=== PATIENT | male | born 1990 | race Caucasian/White ===

== ENCOUNTER 2020-11-11 12:44 | Emergency (ER) | payer OTHER, SELFPAY ==
[2020-11-11 12:45] VITALS: BP 149/89; PULSE 77; RESP 16; TEMP 36.4; O2SAT 98; BMI 37.0
--- NOTE | 2020-11-11 12:55 | VDLE_ITS ---
Reason For Study: pain Procedure LEFT This is a venous duplex using B-mode, color GSV is normal. flow and spectral Doppler. CFV is compressible, spontaneous, phasic, Exam performed portable in ED. competent, and demonstrates normal The exam was abbreviated due to the COVID 19 augmentation. protocol. FV is compressible, spontaneous, phasic, The exam was diagnostic. competent and demonstrates normal A preliminary report was called and/or faxed augmentation. to Dr. Gonzalez. POP V is compressible, spontaneous, phasic, competent and demonstrates normal augmentation. T/P Trunk is compressible. PTV is compressible. LT PerV is compressible. Interpretation Summary There is no evidence of left lower extremity deep vein thrombosis. Left great saphenous vein appears patent and compressible segmentally. COVID-19 protocol Ordering Physician: Darline Gonzalez Performed By: Chase Milan RVT
--- NOTE | 2020-11-11 12:55 | ED.DCSUM_ITS ---
- ER Visit Summary Date of Service: 11/11/20 Chief Complaint: [Left leg pain] History of Present Illness: The patient is a 30 M [presents to the emergency department complaint of pain in his left leg that started yesterday. Patient states that he had been golfing and while standing on the ninth he developed sudden onset of a deep ache in his anterior left dee that then radiated to the calf and up to his upper leg. Patient states that progressively the pain got better and better and resolved over time. Patient states that he was advised by his boss to come in and get a venous Doppler to rule out DVT because he did have Covid in May 2020. Patient denies any chest pain or shortness of breath. He denies recent travel or surgery. He denies long periods of immobilization. Patient currently not having any pain.] Physical Examination: [HEENT-PERRLA, EOMI. Cranial nerves II through XII grossly intact. TMs clear. Mucous membranes moist. No adenopathy. Cardiovascular-regular rate and rhythm without murmur or ectopy Lungs-clear to auscultation, chest wall stable without crepitus or subcu emphysema Abdomen-normoactive bowel sounds, soft, nontender, no rebound or rigidity, no peritoneal signs. Extremities-intact ?4, normal range of motion, normal pulses, atraumatic. No evidence of edema. Patient has normal femoral, popliteal, dorsal pedal, and posterior tibial pulses. No ropes or cords palpated. 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 It may contain incorrect words, spelling, and punctuation that were not noted in review of the chart prior to signing ED Disposition - Plan for ED Patient: Referrals: [facility] Doctor,Out of [NON-STAFF] -
[2020-11-11 13:15] VITALS: BP 146/112; PULSE 68; RESP 15; O2SAT 98
--- NOTE | 2020-11-11 13:46 | DCINST.ED_ITS ---
ED Disposition - Plan for ED Patient: Instructions: ED Muscle Strain, Extremity Referrals: [facility] Doctor,Out of [NON-STAFF] - Khari Garcia MD [STAFF PHYSICIAN] - As Needed
[2020-11-11 13:55] VITALS: BP 153/99; RESP 18; O2SAT 99
== END 2020-11-11 13:55 | disposition home or self-care (01) ==
LOC: ED 13:22
PROVIDERS: Emergency Provider Emergency Medicine
DX: M79.605 Pain in left leg (principal)
CPT/HCPCS: 93971; 99282

== ENCOUNTER 2023-02-10 12:41 | Emergency (ER) | payer BC, SELFPAY ==
[2023-02-10 12:41] VITALS: BP 141/89; PULSE 105; RESP 18; TEMP 36.3; O2SAT 92
--- NOTE | 2023-02-10 13:09 | EX.ED.DYSGE1 ---
HPI History of Present Illness Chief Complaint: Cellulitis Detail of Chief Complaint: Patient is seen wound due to hockey puck several days ago. Now presents wi Informant: patient Onset/Context/Timing Onset: Days Context: Sudden Onset Timing: Continuous Quality: Pain, swelling and redness Location: Distal medial right leg Current Severity: Moderate Maximum Severity: Moderate Worsened by: Initial injury Relieved by: Nothing Associated Symptoms Associated Symptoms: Documented temperature to 100.7 ?F with chills PFSH PFSH Home Medications loratadine 10 mg capsule 10 mg PO DAILY 11/11/20 [History Last Taken Unknown] doxycycline hyclate 100 mg capsule 100 mg PO BID #20 caps 02/10/23 [Rx Last Taken Unknown] Allergy/AdvReac Type Severity Reaction Status Date / Time No Known Allergies Allergy Verified 11/11/20 12:47 Social History Smoking Status: Never smoker EXAM Physical Exam Const Vital Signs: 02/10/23 12:41 Temperature 97.3 F L Temperature Source Temporal Pulse Rate 105 H Respiratory Rate 18 Blood Pressure 141/89 H Blood Pressure Mean 106 Pulse Ox 92 Oxygen Delivery Method Room Air MDM MDM MDM Narrative Medical decision making narrative: I have personally performed a face to face assessment of the patient and have reviewed the CHUNG Note. I performed a substantive portion of the visit including all aspects of the following. My loving findings include: History is for infected distal medial right leg due to injury from hockey puck. He presents with document temperature of 100.7 ?F. There is increasing redness and swelling. There is no history medic fever, heart murmur, mitral valve prolapse or patient being immune suppressed. Exam is tachycardia. Patient has an abscess with cellulitis right leg. There is no lymphangitis. There is no popliteal lymphadenopathy. Heart is regular. There is no murmur, gallop or rub. Lungs are clear to auscultation. Medical Decision Making blood work was obtained for restratification determined patient can be treated inpatient or outpatient. The abscess will require drainage. Will treat with IV antibiotics. The abscess was drained by the nurse practitioner under by direction. Other additions or changes: [None] Lab Data Labs: Laboratory Results - last 24 hr 02/10/23 02/10/23 11:15 11:15 WBC 12.6 H RBC 4.95 Hgb 13.8 Hct 42.7 MCV 86.3 MCH 27.9 MCHC 32.3 RDW Std Deviation 39.2 RDW Coeff of Chrissie 12.4 Plt Count 273 MPV 9.4 Immature Gran % (Auto) 0.200 Neut % (Auto) 78.2 H Lymph % (Auto) 13.3 L [place] % (Auto) 7.7 Eos % (Auto) 0.3 Baso % (Auto) 0.3 Absolute Neuts (auto) 9.9 H Absolute Lymphs (auto) 1.68 Nucleated RBC % 0 Sodium 138 Potassium 3.8 Chloride 106 Carbon Dioxide 25.0 Anion Gap 7 BUN 12 Creatinine 1.14 Est GFR (MDRD) Af Amer 95 Est GFR (MDRD) Non-Af 79 BUN/Creatinine Ratio 10.5 Glucose 121 H Calcium 9.7 Discharge Plan Triage Chief Complaint: Cellulitis ED Midlevel Provider: Malick Bal ED Provider: Tomas Gar Dx/Rx/DC Orders Clinical Impression: Cellulitis and abscess of right leg Instructions: Cellulitis Dc, ED Abscess Incision And Drainage Prescriptions: New doxycycline hyclate 100 mg capsule 100 mg PO BID Qty: 20 0RF No Action loratadine 10 MG capsule 10 mg PO DAILY Primary Care Provider: Nasir Leger Referrals: Nasir Leger MD [Primary Care Provider] - Activity Restrictions/Additional Instructions: You may use a warm compress, if your abscess continues to drain that is okay. The redness should be decreased in the next 48 hours. If you get worse, worsening fever, worsening chills, nausea or vomiting you must return. You may stop the Keflex. Disposition Disposition: Home, Self Care Discharge Date/Time: 02/10/23 14:31
--- NOTE | 2023-02-10 13:16 | EX.ED.DYSGE1 ---
HPI <RISHI Mcginnis - Last Filed: 02/10/23 14:14> History of Present Illness Chief Complaint: Cellulitis Narrative Narrative: Patient is a 32-year-old male with no significant medical history who presents to the emergency department for abscess, cellulitis to the right lower extremity. Patient states approximately 3 weeks ago, he placed ice hockey, a puck hit off of his dee. Over the last week, the area has been more red, more painful. 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 He has been taking 2 days, he states that for the last 48 hours, he has had intermittent fever and chills, as well as some sweats. He states the pain is worse and the redness is getting more intense. He denies any nausea or vomiting. PFSH <RISHI Mcginnis - Last Filed: 02/10/23 14:14> [facility] Home Medications loratadine 10 mg capsule 10 mg PO DAILY 11/11/20 [History Last Taken Unknown] doxycycline hyclate 100 mg capsule 100 mg PO BID #20 caps 02/10/23 [Rx Last Taken Unknown] Allergy/AdvReac Type Severity Reaction Status Date / Time No Known Allergies Allergy Verified 11/11/20 12:47 Social History Smoking Status: Never smoker ROS <RISHI Mcginnis - Last Filed: 02/10/23 14:14> ROS ED ROS Narrative Constitutional: Negative for fever, chills, weight loss, weakness Eyes: Negative for vision loss, vision change, double vision ENT: Negative for any sore throat, ear pain, congestion Cardiovascular: Negative for any chest pain, tightness, palpitations Respiratory: Negative for any cough, sputum production, hemoptysis, dyspnea, dyspnea on exertion, orthopnea Gastrointestinal: Negative for any abdominal pain, nausea, vomiting, diarrhea, constipation, blood in stool, blood in vomit : Negative for any urinary frequency, dysuria, retention, blood in urine Muscle skeletal: Negative for any muscle joint pain, stiffness, myalgias, arthralgias, neck pain, back pain Neurological: Negative for any headache, syncope, numbness or tingling, dizziness Skin: Negative for any rashes, lumps, itching, abrasions, lacerations. Positive for abscess, redness to the right lower extremity Psychiatric: Negative for any depression, anxiety, stress, suicidal ideation, homicidal ideation Hematologic: Negative for any easy bruising, excessive bruising, easy bleeding Allergies: Negative for any eczema, hives, rash EXAM <RISHI Mcginnis - Last Filed: 02/10/23 14:14> Physical Exam Narrative Exam Narrative: Vital signs reviewed. HEET: Head normocephalic atraumatic, TMs clear bilaterally. Posterior pharynx is clear, moist mucous membranes. Nares clear bilaterally. Neck: Supple with no lymphadenopathy or tenderness. No signs of meningismus, negative jolt sign. Cardiac: Regular rate and rhythm no murmurs gallops or rubs, equal peripheral pulses bilaterally. Respiratory: Lungs clear to auscultation bilaterally. No chest tenderness. Abdomen: Soft, nontender, nondistended. No abdominal bruit or pulsatile masses. No hepatosplenomegaly Extremities: Patient has a sizable area of erythema consistent with cellulitis to the right lower extremity. This is just above the medial malleolus, on the anterior lateral aspect. There is no circumferential cellulitis however there is deep redness and fluctuance to the center. There is no gross drainage. There is tenderness on palpation. Patient has +2 pedal pulse. The right foot is slightly edematous. Neuro: Cranial nerves II through XII intact, no focal neurological deficits. Skin: Clean dry and intact with no rash, purpura, petechiae, vesicles or pustules. Backs/flank: No CVA tenderness, no midline spinal tenderness, no deformity. Psych: Normal mood and affect. No SI, HI or acute psychosis. Const Vital Signs: 02/10/23 12:41 Temperature 97.3 F L Temperature Source Temporal Pulse Rate 105 H Respiratory Rate 18 Blood Pressure 141/89 H Blood Pressure Mean 106 Pulse Ox 92 Oxygen Delivery Method Room Air <Dr. Tomas Gar MD - Last Filed: 02/17/23 09:51> Physical Exam Const Vital Signs: 02/10/23 12:41 Temperature 97.3 F L Temperature Source Temporal Pulse Rate 105 H Respiratory Rate 18 Blood Pressure 141/89 H Blood Pressure Mean 106 Pulse Ox 92 Oxygen Delivery Method Room Air MDM <RISHI Mcginnis - Last Filed: 02/10/23 14:14> [facility] Lab Data Labs: Laboratory Results - last 24 hr 02/10/23 02/10/23 11:15 11:15 WBC 12.6 H RBC 4.95 Hgb 13.8 Hct 42.7 MCV 86.3 MCH 27.9 MCHC 32.3 RDW Std Deviation 39.2 RDW Coeff of Chrissie 12.4 Plt Count 273 MPV 9.4 Immature Gran % (Auto) 0.200 Neut % (Auto) 78.2 H Lymph % (Auto) 13.3 L Gates % (Auto) 7.7 Eos % (Auto) 0.3 Baso % (Auto) 0.3 Absolute Neuts (auto) 9.9 H Absolute Lymphs (auto) 1.68 Nucleated RBC % 0 Sodium 138 Potassium 3.8 Chloride 106 Carbon Dioxide 25.0 Anion Gap 7 BUN 12 Creatinine 1.14 Est GFR (MDRD) Af Amer 95 Est GFR (MDRD) Non-Af 79 BUN/Creatinine Ratio 10.5 Glucose 121 H Calcium 9.7 Treatment and Re-Evaluation :: Patient appears generally well, patient appears nontoxic, vital signs are stable. Patient presents to the emergency department for redness, concern for abscess to the right lower extremity. This area does appear cellulitic, patient will see basic laboratory values as well as IV Unasyn. As for the, I was able to anesthetize the area cleansed the area. I was able to place a 1 cm horizontal incision, copious amounts of clear to yellowish drainage. Patient has laboratory values, patient CBC showed leukocytosis at 12.6. Patient's chemistries were unremarkable. Patient was given 3 g of Unasyn. At this time, I do believe the patient is stable for discharge. He will continue to follow-up with his PCP. He will be placed on doxycycline twice a day for 10 days. He is instructed to return for worsening redness, fever, chills, nausea or vomiting. He is happy the plan of care, wound care instructions given. <Dr. Tomas Gar MD - Last Filed: 02/17/23 09:51> [facility] Narrative Medical decision making narrative: I have personally performed a face to face assessment of the patient and have reviewed the CHUNG Note. I performed a substantive portion of the visit including all aspects of the following. My loving findings include: History is remarkable for pain, swelling redness to his leg due to injury while playing hockey. He presents now because of redness, pain and swelling. He denies fever, chills night sweats. He denies history medic fever. He denies history of heart murmur, SBE or being immune suppressed. He denies allergies to antibiotics. Exam is remarkable for cellulitis and abscess of the leg. There is no lymphangitis. There is no popliteal angle lymphadenopathy. There is no neurovascular mise to the extremity. Heart is rapid and regular without murmur, gallop or rub. Lungs are clear to auscultation. He is alert and oriented x3. Medical Decision Making patient has an abscess which will require incision and drainage. Since there is concomitant cellulitis will treat with antibiotics. Other additions or changes: The procedure was performed by the nurse practitioner under my direction and supervision. Lab Data Attestation: I reviewed the patient's lab results. Lab results narrative: White count is slightly elevated with slip. There is no bandemia. Basic metabolic panel reveals a glucose of 121 with normal CO2 and anion gap. Electrolytes otherwise are unremarkable. Labs: Laboratory Results - last 24 hr 02/10/23 02/10/23 11:15 11:15 WBC 12.6 H RBC 4.95 Hgb 13.8 Hct 42.7 MCV 86.3 MCH 27.9 MCHC 32.3 RDW Std Deviation 39.2 RDW Coeff of Chrissie 12.4 Plt Count 273 MPV 9.4 Immature Gran % (Auto) 0.200 Neut % (Auto) 78.2 H Lymph % (Auto) 13.3 L Gates % (Auto) 7.7 Eos % (Auto) 0.3 Baso % (Auto) 0.3 Absolute Neuts (auto) 9.9 H Absolute Lymphs (auto) 1.68 Nucleated RBC % 0 Sodium 138 Potassium 3.8 Chloride 106 Carbon Dioxide 25.0 Anion Gap 7 BUN 12 Creatinine 1.14 Est GFR (MDRD) Af Amer 95 Est GFR (MDRD) Non-Af 79 BUN/Creatinine Ratio 10.5 Glucose 121 H Calcium 9.7 Discharge Plan Triage Chief Complaint: Cellulitis ED Midlevel Provider: Malick Bal ED Provider: Tomas Gar Dx/Rx/DC Orders Clinical Impression: Cellulitis and abscess of right leg Instructions: Cellulitis Dc, ED Abscess Incision And Drainage Prescriptions: New doxycycline hyclate 100 mg capsule 100 mg PO BID Qty: 20 0RF No Action loratadine 10 MG capsule 10 mg PO DAILY Primary Care Provider: Nasir Leger Referrals: Nasir Leger MD [Primary Care Provider] - Activity Restrictions/Additional Instructions: You may use a warm compress, if your abscess continues to drain that is okay. The redness should be decreased in the next 48 hours. If you get worse, worsening fever, worsening chills, nausea or vomiting you must return. You may stop the Keflex. Disposition Disposition: Home, Self Care Discharge Date/Time: 02/10/23 14:31
[2023-02-10] MEDS: 0.9% Normal Saline 1,000 ML 1000 ML IV (13:20)
[2023-02-10 13:26] LABS: Absolute Lymphocyte Count 1.68 X10^3/uL (0.83-4.51); Absolute Neutrophil Count 9.9 X10^3/uL (2.0-7.7); Basophil# 0.04 X10^3/uL; Basophil% 0.3 % (0-1); Eosinophil# 0.04 X10^3/uL; Eosinophils% 0.3 % (0-5); Hematocrit 42.7 % (40-54); Hemoglobin 13.8 g/dL (13.0-16.5); Lymphocyte # 1.68 X10^3/ul (0.83-4.51); Lymphocyte % 13.3 % (19-41); Mean Corp Hgb Conc 32.3 g/dL (32-36); Mean Corpuscular Hgb 27.9 pg (27.0-32.0); Mean Corpuscular Volume 86.3 fL (80-94); Mean Platelet Vol. 9.4 fl (6.2-12.0); Monocyte# 0.97 X10^3/uL; Monocyte% 7.7 % (0-10); NRBC Flagged by Analyzer 0 % (0-5); Neutrophil # 9.89 X10^3/uL (2.7-7.7); Neutrophil % 78.2 % (47-70); Platelet Count 273 K/mm3 (150-450); RBC Distribution Width CV 12.4 % (11.6-14.6); RBC Distribution Width SD 39.2 fl (35.1-43.9); Red Blood Count 4.95 M/mm3 (4.6-6.2); White Blood Count 12.6 K/mm3 (4.4-11.0)
[2023-02-10 13:39] LABS: Anion Gap 7 (5-15); BUN 12 mg/dL (7-18); BUN/Creat Ratio 10.5 RATIO (10-20); Calcium,Total 9.7 mg/dL (8.5-10.1); Chloride 106 mmol/L (98-107); Creatinine, Serum 1.14 mg/dL (0.70-1.30); EST Glomerular Filtration Rate 79 mL/min (>60); Est Glom Filt Rate - Afr Amer 95 mL/min (>60); Glucose 121 mg/dL (74-106); Potassium 3.8 mmol/L (3.5-5.1); Sodium Level 138 mmol/L (136-145)
== END 2023-02-10 14:31 | disposition home or self-care (01) ==
PROVIDERS: Nurse Practitioner; Emergency Provider Emergency Medicine; PCP Internal Medicine; Visit Provider Emergency Medicine
DX: L03.115 Cellulitis of right lower limb (principal); L02.415 Cutaneous abscess of right lower limb
CPT/HCPCS: 80048; 85025; 96365; 96375; 99282; J7030; A4216; J0295

== ENCOUNTER 2023-03-02 14:26 | Emergency (ER) | payer BC, SELFPAY ==
[2023-03-02 14:26] VITALS: BP 141/93; PULSE 110; RESP 18; TEMP 35.8; O2SAT 98; BMI 39.1
--- NOTE | 2023-03-02 15:05 | EDS_ITS ---
HPI History of Present Illness Chief Complaint: Lower Extremity Injury PFSH PFS Home Medications loratadine 10 mg capsule 10 mg PO DAILY 11/11/20 [History Last Taken Unknown] doxycycline hyclate 100 mg capsule 100 mg PO BID #20 caps 02/10/23 [Rx Last Taken Unknown] Allergy/AdvReac Type Severity Reaction Status Date / Time No Known Allergies Allergy Verified 03/02/23 14:28 Social History Smoking Status: Never smoker EXAM Physical Exam Const Vital Signs: 03/02/23 14:26 03/02/23 18:26 Temperature 96.5 F L Temperature Source Temporal Pulse Rate 110 H Respiratory Rate 18 18 Blood Pressure 141/93 H Blood Pressure Mean 109 Pulse Ox 98 Oxygen Delivery Method Room Air MDM MDM MDM Narrative Medical decision making narrative: HISTORY OF PRESENT ILLNESS: 30-year-old male here for left knee pain. He states there is no inciting event. Notes left knee pain 4 days ago worse over the superior portion of his left patella. Denies history of knee surgery. Does no history of gout. Denies any fever. Nu[place] history of diabetes. Denies any vomiting. Denies any loss of sensation or numbness. REVIEW OF SYSTEMS: Pertinent positives: Left knee Pertinent negatives: Numbness tingling PHYSICAL EXAM: Nursing triage notes reviewed, Vital signs reviewed Constitutional: please see mdm Extremities: N left knee effusion, range of motion in flexion extension limited by pain no overlying cellulitis noted Neuro: No focal neurological deficits, cranial nerves II through XII intact, 5/5 strength in all extremities. Intact sensation to light touch in all extremities, 2+ reflexes bilateral patella tendons. Normal gait. No ataxia. Intact sensation L1-S1 dermatomal distributions. Intact 5/5 strength in hip flexion (T12-L3). Knee extension (L2-L4). Ankle dorsiflexion (L4-L5). Ankle plantar flexion (S1). Great toe extension (L5). 2+ patellar and Achilles DTRs. Ions noted MEDICAL DECISION MAKING: Chief Complaint: Left knee pain External records reviewed: Seen 2 weeks ago for cellulitis and abscess of the right leg. Factors affecting care: none Social determinants of health: none History obtained from others: none Consults: none ALL IMAGES (IF OBTAINED) HAVE BEEN PERSONALLY REVIEWED AND INTERPRETED BY MYSELF. MDM Narrative: 32-year-old male here with left knee pain. The was afebrile and nontoxic- appearing. I considered the following differential diagnosis: Fracture dislocation, contusion, quadriceps tendon rupture, cellulitis, necrotizing fasciitis, septic arthritis, arterial occlusion ligamentous sprain or tear Exam consistent with left-sided knee effusion. Patient had a well-perfused involved extremity. No evidence of quadriceps tendon rupture. Will obtain x- ray to rule out bony injury. If x-rays negative will pursue arthrocentesis. X- rays were reviewed myself and show no evidence of bony fracture dislocation. Procedure: The procedure was performed by myself. Location: Left knee Consent: Questions were sought and answered, and consent was given for the procedure. Benefits and Risk: The risks (including but not limited pain, bleeding and infection) and benefits of arthrocentesis were discussed with the patient. Preparation: Under sterile technique the joint area was prepped and draped in standard bedside fashion. Anesthesia: The skin and deeper tissue was anesthetized with 1% lidocaine. Needle Akash: 18-gauge Procedure Description: Patient was anesthetized 1% lidocaine. Needle was introduced to the lateral infrapatellar region. With return of yellow serosanguineous synovial fluid Wound Treatment: Dressing applied. The patient tolerated the procedure well without complications and my repeat neurovascular exam post-procedure is unchanged. Indication: Left-sided knee effusion Consent: Written Synovial fluid analysis revealed no evidence of septic arthritis, gouty arthritis. I suspect the patient has a joint effusion likely from a musculoskeletal injury may be ligamentous strain. Will give NSAID instructions and close follow-up instructions as an outpatient with his PCP. The patient and/or family, caregivers express understanding. The patient and/or family, caregivers agrees with the plan. Total critical care time today provided was at least 0 [] minutes. This excludes separately billable procedures. Critical care time (if documented) is secondary to the patient having high probability of clinically significant/life threatening deterioration in the patient's condition which required my urgent intervention. Shared decision making: I will have a discussion with the patient and or visitors regarding risk/benefits of further testing or admission. They will be made aware of of the risk/benefits inherent in this decision they will be given the opportunity to voice understanding. Lab Data Attestation: I reviewed the patient's lab results. Labs: Laboratory Results - last 24 hr 03/02/23 16:52 Fluid Crystals NO CRYSTALS SEEN Fluid Crystal Source SYNOVIAL Fl Crystal Path Review Will follow Synovial Source LEFT KNEE Synovial Color Yellow Synovial Appearance Cloudy Synovial WBC 14.9220 H Synovial RBC 281 H Synovial Tot Cell Ct 14.9660 H Synov Polynuclear WBCs 13.814 Synov Mononuclear WBCs 1.503 Synovial Neutrophils 86 H Synovial Lymphocytes 6 Synovial Monocytes 8 Synovial Polynuclear % 90.2 Synovial Mononuclear % 9.[address] Comment May follow Radiography Diagnostic Testing: Clinical Impression(s) from Imaging Studies Knee X-Ray 03/02/23 16:08 IMPRESSION: No acute osseous abnormalities. There is a small suprapatellar joint effusion. Electronically Signed: Michael Michelle MD at 16:29 EDT , X-ray of the left knee was reviewed myself shows no evidence of acute fracture dislocation Discharge Plan Triage Chief Complaint: Lower Extremity Injury ED Provider: Surinder Sainz Dx/Rx/DC Orders Prescriptions: No Action loratadine 10 MG capsule 10 mg PO DAILY doxycycline hyclate 100 mg capsule 100 mg PO BID Qty: 20 0RF Primary Care Provider: Nasir Leger Referrals: Nasir Leger MD [Primary Care Provider] -
--- NOTE | 2023-03-02 16:08 | RAD_ITS ---
EXAM: XR LEFT KNEE, 3 VIEWS CLINICAL INDICATION: knee pain TECHNIQUE: Three views of the left knee. COMPARISON: No relevant prior studies available. FINDINGS: BONES/JOINTS: There is a small suprapatellar joint effusion. No acute fracture. No subluxation. Normal alignment. No sclerotic or destructive changes observed. SOFT TISSUES: Unremarkable. No soft tissue swelling or gas. No radiopaque foreign body. RAD/Knee 3 Views IMPRESSION: No acute osseous abnormalities. There is a small suprapatellar joint effusion. Electronically Signed: Michael Michelle MD at 16:29 EDT ,
[2023-03-02 16:57] LABS: Pathologist Comment May follow
[2023-03-02] MEDS: Lidocaine 1% (20 ml mdv) 20 ML Vial 5 ML INFILT (17:05)
[2023-03-02 17:40] LABS: Synovial Fld Mononuclear WBC # 1.503 10^3/ul; Synovial Fld Mononuclear WBC % 9.8 %; Synovial Fld Polynuclear WBC # 13.814 10^3/uL; Synovial Fld Polynuclear WBC % 90.2 %
[2023-03-02 18:26] VITALS: RESP 18
[2023-03-02 18:57] LABS: Lymph 6 %; Monocyte /Synovial Fluid 8 %; Neutrophil 86 % (0-25)
[2023-03-02 18:58] LABS: AUTO B FLUID DILUENT BKGD CT WBC <0.1 RBC <0.01 (W<.1,R<.01); Appearance /Synovial Fluid Cloudy (CLEAR); CRYSTALS, BODY FLUID NO CRYSTALS SEEN; Color / Synovial Fluid Yellow (Pale Yellow); RBC /Synovial Fluid 281 /mm3 (0); Source / Synovial Fluid LEFT KNEE; Source- Body Fluid SYNOVIAL
[2023-03-04 10:20] LABS: Pathologist Review Reviewed
== END 2023-03-02 19:38 | disposition home or self-care (01) ==
PROVIDERS: Emergency Provider Emergency Medicine; PCP Internal Medicine; Visit Provider Emergency Medicine
DX: M25.462 Effusion, left knee (principal)
CPT/HCPCS: 73562; 87070; 87075; 87205; 89050; 89051; 89060; 99282

== ENCOUNTER → 2023-06-17 | Outpatient (CLI) | payer SELFPAY ==
[2023-06-21 20:08] LABS: QNTFERON TB Mitogen Value > 10.00 IU/mL (.); QNTFERON TB Nil Value 0.03 IU/mL (.); QNTFERON TB1+ Ag Value 0.06 IU/mL (.); QNTFERON TB2+ Ag Value 0.06 IU/mL (.); QNTIFERON TB Positive Criteria Negative (Negative)
== END | disposition home or self-care (01) ==
PROVIDERS: PCP Internal Medicine; Referring Provider Physician Assistant Surgical; Visit Provider Physician Assistant Surgical
DX: Z02.1 Encounter for pre-employment examination (principal)
CPT/HCPCS: 36415; 86480